=== PATIENT | female | born 1995 | race Caucasian/White ===

== ENCOUNTER 2018-03-22 19:23 | Emergency (ER) | payer OTHER ==
[2018-03-22 19:33] VITALS: BP 95/78
--- NOTE | 2018-03-22 19:49 | EDPHY ---
H & P Time Seen by Provider: 03/22/18 19:39 HPI/ROS: CHIEF COMPLAINT: Skin avulsion from mandolin grater HISTORY OF PRESENT ILLNESS: 23-year-old female in the ER via private vehicle complaining of left thumb skin avulsion after she was using a mandoline greater and sustained skin avulsion. Accidental. Tetanus is out-of-date. PHYSICAL EXAM (Prior to examination, patient consented to physical exam, hands were washed and my usual and customary physical exam procedures followed) 1) GENERAL: Well-developed, well-nourished, alert and oriented. Appears to be in no acute distress. 2) HEAD: Normocephalic 3) HEENT: sclera anicteric 4) LUNGS: Breathing comfortably. 5) SKIN: Left thumb distal phalanx 1 cm x 1 cm skin avulsion, slow capillary like bleed. No signs of infection. Superficial. Smoking Status: Never smoked Constitutional: Initial Vital Signs Temperature (C) 37.1 C 03/22/18 19:30 Heart Rate 52 L 03/22/18 19:30 Respiratory Rate 20 03/22/18 19:30 Blood Pressure 95/78 L 03/22/18 19:30 O2 Sat (%) 97 03/22/18 19:30 Allergies/Adverse Reactions: acetaminophen [From Percocet] Allergy (Verified 03/22/18 19:30) oxycodone HCl [From Percocet] Allergy (Verified 03/22/18 19:30) VICOIDIN Allergy (Uncoded 03/22/18 19:30) Home Medications: Medication Instructions Recorded NO HOME MEDS 08/24/10 MDM/Departure - MDM Procedures: Procedure: Digital nerve block Indication: Anesthesia prior to wound cleaning Surgicel placement Indications risks benefits discussed with patient, 1% plain lidocaine administered via digital nerve block using my usual and customary technique. Patient tolerated procedure well. Medications Given: Discontinued Medications Diphtheria/Tetanus/Acell Pertussis (Boostrix) 0.5 ml IM .ONCE ONE Stop: 03/22/18 19:53 Last Admin: 03/22/18 20:00 Dose: 0.5 ml ED Course/Re-evaluation: Patient's wound was dressed with Surgicel resulting in hemostasis. Tetanus has been updated. Usual and customary wound precautions and instructions provided. Care of patient under supervision of secondary supervising physician Dr Gil . - Depart Disposition: Home, Routine, Self-Care Clinical Impression: Avulsion of skin of left thumb Qualifiers: Encounter type: initial encounter Qualified Code(s): S61.002A - Unspecified open wound of left thumb without damage to nail, initial encounter Condition: Good Instructions: Skin Avulsion (ED) Additional Instructions: Return to the ER if you develop redness, swelling, discharge, warmth to the wound, red streaks going up your arm, or any other symptoms that concern you. Referrals: Mitali Pagan MD [Primary Care Provider] - 2-3 days, call for appt.
[2018-03-22] MEDS ORDERED: TDAP ADULT 0.5 ML INJ (BOOSTRIX) IM ONE (19:52)
== END 2018-03-22 20:45 | disposition home or self-care (01) ==
PROC: 3E0T3BZ Introduction of Anesthetic Agent into Peripheral Nerves and Plexi, Percutaneous Approach (ICD-10-PCS; principal; 2018-03-22)
DX: S61.002A Unspecified open wound of left thumb without damage to nail, initial encounter (principal); Z23 Encounter for immunization; W27.4XXA Contact with kitchen utensil, initial encounter